=== PATIENT | male | born 1980 | race Caucasian/White ===

== ENCOUNTER 2025-06-09 21:15 | Inpatient (IN) | payer BC, OTHER ==
[~2025-06-09] VITALS: Ht 172.7 cm; Wt 100.2 kg
[2025-06-09] MEDS ORDERED: CLON0.1T PO (21:34)
[2025-06-09] MEDS ORDERED: OMEP20CA15 PO (21:34)
[2025-06-09] MEDS ORDERED: FAMO10TA41 PO (21:34)
[2025-06-09] MEDS ORDERED: GABA300C PO (21:34)
[2025-06-09] MEDS ORDERED: TRAZ150T75 PO (21:34)
[2025-06-09] MEDS ORDERED: ACETAMINOPHEN 500 MG TABLET ONE (21:49)
[2025-06-09 22:23] LABS: PLATELET COUNT (AUTO) 262 K/uL (152-348); RED BLOOD CELL COUNT(AUTO) 4.77 MIL/uL (4.06-5.63); RED CELL DISTRIBUTION WIDTH 13.3 % (12.1-16.2); WHITE BLOOD COUNT (AUTO) 10.1 K/uL (3.6-10.2)
[2025-06-09 22:30] LABS: CREATININE 1.0 mg/dL (0.6-1.3); SODIUM SERUM 142.0 mmol/L (136-145); UREA NITROGEN, BLOOD 14.0 mg/dL (7-18)
[2025-06-09 22:35] LABS: ASPARTATE AMINOTRANSFERASE 22.0 U/L (15-37); TOTAL PROTEIN, SERUM 7.3 g/dL (6.4-8.2)
[2025-06-09] MEDS: IV NORMAL SALINE 1000 ML BAG IV ONE (22:38)
[2025-06-09] MEDS: ACETAMINOPHEN 500 MG TABLET PO ONE (22:38)
[2025-06-10 00:05] VITALS: O2SAT 96
[2025-06-10] MEDS: ALBUTEROL SULFATE 2.5 MG/3 ML NEBU NEB ONE (00:05)
[2025-06-10] MEDS: IPRATROPIUM BROMIDE 0.5 MG/2.5 ML NEBU NEB ONE (00:05)
[2025-06-10 00:20] VITALS: O2SAT 99
[2025-06-10] MEDS ORDERED: CEFTRIAXONE /D5W 50ML IVPB **ER PYXIS IV ONE (01:35)
[2025-06-10] MEDS ORDERED: AZITHROMYCIN 500MG/ D5W 250ML IVPB **ER PYXIS ONLY IV ONE (02:18)
[2025-06-10] MEDS: AZITHROMYCIN IV 500 MG in IV DEXTROSE 5% 250 ML IV ONE (02:22)
[2025-06-10] MEDS ORDERED: ALBUTEROL SULFATE 2.5 MG/ 0.5 ML NEBU NEB PRN (05:00)
[2025-06-10] MEDS ORDERED: IPRATROPIUM BROMIDE 0.5 MG/2.5 ML NEBU NEB PRN (05:00)
[2025-06-10] MEDS ORDERED: MAGNESIUM HYDROXIDE 30 ML LIQUID UDC PO PRN (05:00)
[2025-06-10] MEDS ORDERED: ACETAMINOPHEN 325 MG TABLET PO PRN (05:00)
[2025-06-10] MEDS ORDERED: ONDANSETRON 4 MG/2 ML VIAL IV PRN (05:00)
[2025-06-10 06:00] VITALS: BP 96/86
[2025-06-10 06:14] LABS: PLATELET COUNT (AUTO) 238 K/uL (152-348); RED BLOOD CELL COUNT(AUTO) 4.82 MIL/uL (4.06-5.63); RED CELL DISTRIBUTION WIDTH 13.5 % (12.1-16.2); WHITE BLOOD COUNT (AUTO) 9.1 K/uL (3.6-10.2)
[2025-06-10 06:20] LABS: CREATININE 1.1 mg/dL (0.6-1.3); SODIUM SERUM 141.0 mmol/L (136-145); UREA NITROGEN, BLOOD 14.0 mg/dL (7-18)
[2025-06-10 06:44] VITALS: BP 109/80; TEMP 97.7; O2SAT 95
[2025-06-10] MEDS ORDERED: ATOR20TA PO (09:05)
[2025-06-10] MEDS: PANTOPRAZOLE SODIUM 40 MG TABLET.DR PO SCH (09:26)
[2025-06-10] MEDS ORDERED: AZIT250T13 PO (15:55)
[2025-06-10] MEDS ORDERED: ALBU18HF2 INH (15:55)
[2025-06-11] MEDS ORDERED: AZITHROMYCIN 250 MG TABLET PO SCH (09:00)
== END 2025-06-10 16:30 | disposition home or self-care (01) | DRG 202 ==
LOC: ER 21:15 → MEDSURG3 06-10 05:05
PROVIDERS: ADMIT Nurse Practitioner Family; ATTEND Internal Medicine
DX: J20.9 Acute bronchitis, unspecified (principal); J96.01 Acute respiratory failure with hypoxia; E66.9 Obesity, unspecified; F31.9 Bipolar disorder, unspecified; F14.11 Cocaine abuse, in remission; F17.210 Nicotine dependence, cigarettes, uncomplicated; Z79.899 Other long term (current) drug therapy; Z68.33 Body mass index [BMI] 33.0-33.9, adult; Z86.15 Personal history of latent tuberculosis infection; K21.9 Gastro-esophageal reflux disease without esophagitis; R00.0 Tachycardia, unspecified
CPT/HCPCS: 36415; 71046; 71250; 85025; A4663; A9150; G0378; J0456; J0696; J2919; J3590; J7040